=== PATIENT | female | born 1970 | race Caucasian/White ===

== ENCOUNTER 2018-06-03 09:59 | Inpatient (IN) | payer MEDICAID, OTHER ==
[~2018-06-03] VITALS: Ht 154.9 cm; Wt 72.6 kg
[2018-06-03 10:48] LABS: BASOPHILS % 0.4 % (0.0-2.0); EOSINOPHILS % 1.9 % (0.0-5.0); HEMATOCRIT. 36.7 % (36.0-48.0); HEMOGLOBIN. 12.2 g/dL (12.0-16.0); LYMPHOCYTES % 22.3 % (20.0-50.0); MEAN CORPUSCULAR HEMOGLOBIN 30.6 pg (28.0-32.0); MEAN CORPUSCULAR VOLUME 91.8 fL (81.0-99.0); MEAN PLATELET VOLUME 9.4 fl (7.4-10.4); MONOCYTES % 4.7 % (2.0-8.0); NEUTROPHILS % 70.7 % (40.0-76.0); PLATELET 184 x1000/uL (130-400); RED CELL DISTRIBUTION WIDTH 12.8 % (11.6-14.6)
[2018-06-03 10:54] LABS: CHLORIDE 105 mEq/L (98-107)
[2018-06-03 10:59] LABS: ETHANOL BLOOD < 10 mg/dL
[2018-06-03] MEDS ORDERED: LORAZEPAM 2MG/ML CPJ IV ONE (11:15)
[2018-06-03] MEDS ORDERED: SODIUM CHLORIDE 0.9% 1,000 ML IV ONE (11:15)
[2018-06-03 11:40] LABS: CREATINE KINASE 47 IU/L (26-192)
[2018-06-03 12:18] LABS: CLARITY URINE CLEAR (CLEAR); COLOR URINE YELLOW (YELLOW); KETONES URINE NEGATIVE (NEGATIVE); LEUKOCYTE ESTERASE URINE NEGATIVE (NEGATIVE); NITRITE URINE NEGATIVE (NEGATIVE); OCCULT BLOOD URINE NEGATIVE (NEGATIVE); PROTEIN URINE NEGATIVE (NEGATIVE); UROBILINOGEN URINE 0.2 E.U./dL (0.2-1.0)
[2018-06-03 13:00] LABS: *AMPHETAMINES SCREEN URINE NEGATIVE (NEGATIVE); *BARBITURATES SCREEN URINE NEGATIVE (NEGATIVE); *BENZODIAZEPINES SCREEN URINE NEGATIVE (NEGATIVE); *COCAINE SCREEN URINE NEGATIVE (NEGATIVE); CANNABINOID URINE SCREEN NEGATIVE (NEGATIVE); METHADONE URINE SCREEN NEGATIVE (NEGATIVE); OPIATES URINE SCREEN NEGATIVE (NEGATIVE); PHENCYCLIDINE URINE SCREEN NEGATIVE (NEGATIVE)
[2018-06-03] MEDS ORDERED: ACETAMINOPHEN 325MG TABLET PO PRN (15:00)
[2018-06-03] MEDS ORDERED: ONDANSETRON HCL 4MG/2ML INJ IV PRN (15:00)
[2018-06-03 15:39] LABS: VITAMIN B12 SERUM 1177 pg/mL (211-911)
[2018-06-03] MEDS: DEXT 5%/0.45% NACL 1000ML 1,000 ML IV SCH (20:15)
[2018-06-03] MEDS: LORAZEPAM 2MG/ML CPJ IV PRN (20:20)
[2018-06-03 22:50] VITALS: BP_SYST 134; BP_DIAS 46; BP_DIAS 49
[2018-06-04 04:00] VITALS: BP 100/88
[2018-06-04] MEDS: DEXT 5%/0.45% NACL 1000ML 1,000 ML IV SCH ×2 (04:20→17:40)
[2018-06-04 08:00] VITALS: BP 98/52
[2018-06-04 08:07] LABS: BASOPHILS % 0.5 % (0.0-2.0); HEMATOCRIT. 36.1 % (36.0-48.0); LYMPHOCYTES % 21.5 % (20.0-50.0); MEAN CORPUSCULAR HEMOGLOBIN 30.4 pg (28.0-32.0); MEAN CORPUSCULAR VOLUME 91.3 fL (81.0-99.0); MONOCYTES % 4.9 % (2.0-8.0); NEUTROPHILS % 71.1 % (40.0-76.0); PLATELET 190 x1000/uL (130-400); RED BLOOD CELL COUNT 3.95 mill/uL (4.2-5.4)
[2018-06-04 10:47] LABS: CHLORIDE 104 mEq/L (98-107)
[2018-06-04 12:00] VITALS: BP 111/62
[2018-06-04 16:00] VITALS: BP_SYST 103; BP_SYST 144; BP_SYST 69; BP_DIAS 69; BP_DIAS 85
[2018-06-04 20:00] VITALS: BP 108/60
[2018-06-04] MEDS: HALOPERIDOL 2MG TABLET PO SCH (20:49)
[2018-06-04 22:00] VITALS: BP 104/54
[2018-06-05] VITALS: BP 111/66
[2018-06-05 04:00] VITALS: BP 100/66
[2018-06-05 08:00] VITALS: BP 160/100
[2018-06-05] MEDS: HALOPERIDOL 2MG TABLET PO SCH ×2 (09:13→20:18)
[2018-06-05] MEDS: DEXT 5%/0.45% NACL 1000ML 1,000 ML IV SCH ×2 (09:16→20:20)
[2018-06-05 12:00] VITALS: BP 130/52
[2018-06-05] MEDS: LORAZEPAM 2MG/ML CPJ IV PRN ×2 (15:50→23:07)
[2018-06-05 16:00] VITALS: BP 126/70
[2018-06-05 20:00] VITALS: BP 104/57
[2018-06-06] VITALS: BP 109/49
[2018-06-06 04:00] VITALS: BP 115/61
[2018-06-06 08:19] VITALS: BP 125/69
[2018-06-06 08:26] LABS: HIV SCREEN 4G Non Reactive (Non Reactive)
[2018-06-06] MEDS: HALOPERIDOL 2MG TABLET PO SCH ×2 (08:42→19:52)
[2018-06-06] MEDS: LORAZEPAM 2MG/ML CPJ IV PRN (08:42)
[2018-06-06 12:06] VITALS: BP 128/65
[2018-06-06 16:24] VITALS: BP 110/75
[2018-06-06 20:00] VITALS: BP 115/52
[2018-06-06] MEDS: DEXT 5%/0.45% NACL 1000ML 1,000 ML IV SCH (23:00)
[2018-06-07] VITALS: BP 103/69
[2018-06-07 04:00] VITALS: BP 104/56
[2018-06-07 08:00] VITALS: BP 105/50
[2018-06-07] MEDS: HALOPERIDOL 2MG TABLET PO SCH ×2 (08:24→20:15)
[2018-06-07 12:00] VITALS: BP 121/71
[2018-06-07 16:00] VITALS: BP 115/70
[2018-06-07 20:00] VITALS: BP 150/83
[2018-06-08] VITALS: BP 109/61
[2018-06-08 04:00] VITALS: BP 120/78
[2018-06-08] MEDS: HALOPERIDOL 2MG TABLET PO SCH ×2 (08:35→20:21)
[2018-06-08 12:00] VITALS: BP 114/69
[2018-06-08 20:00] VITALS: BP 128/79
[2018-06-08 23:44] VITALS: BP 103/60
[2018-06-09] MEDS: LORAZEPAM 2MG/ML CPJ IV PRN ×2 (01:37→20:02)
[2018-06-09 04:00] VITALS: BP 121/68
[2018-06-09 07:51] VITALS: BP 111/54
[2018-06-09] MEDS: HALOPERIDOL 2MG TABLET PO SCH ×2 (08:12→20:02)
[2018-06-09 12:00] VITALS: BP 96/40
[2018-06-09 20:00] VITALS: BP 113/59
[2018-06-10] VITALS: BP 110/55
[2018-06-10 04:00] VITALS: BP_SYST 118; BP_SYST 137; BP_DIAS 66; BP_DIAS 70
[2018-06-10] MEDS: DEXT 5%/0.45% NACL 1000ML 1,000 ML IV SCH ×2 (07:00→20:20)
[2018-06-10 07:45] VITALS: BP 100/50
[2018-06-10] MEDS: HALOPERIDOL 2MG TABLET PO SCH ×2 (09:57→20:35)
[2018-06-10 12:00] VITALS: BP 112/65
[2018-06-10 16:00] VITALS: BP 102/53
[2018-06-10 20:00] VITALS: BP 105/61
[2018-06-10] MEDS: LORAZEPAM 2MG/ML CPJ IV PRN (22:47)
[2018-06-11] VITALS: BP 115/70
[2018-06-11 04:00] VITALS: BP 115/72
[2018-06-11] MEDS: LORAZEPAM 2MG/ML CPJ IV PRN (04:57)
[2018-06-11 08:00] VITALS: BP 131/74
[2018-06-11] MEDS: HALOPERIDOL 2MG TABLET PO SCH ×2 (08:21→20:08)
[2018-06-11] MEDS: DEXT 5%/0.45% NACL 1000ML 1,000 ML IV SCH (09:40)
[2018-06-11 12:00] VITALS: BP 131/76
[2018-06-11 16:00] VITALS: BP 103/55
[2018-06-11 20:00] VITALS: BP 102/60
[2018-06-11] MEDS: DIPHENHYDRAMINE 50MG/ML VIAL IV PRN (20:17)
[2018-06-12] VITALS: BP 103/50
[2018-06-12 04:00] VITALS: BP 113/69
[2018-06-12 07:51] VITALS: BP 112/68
[2018-06-12] MEDS: HALOPERIDOL 2MG TABLET PO SCH ×2 (08:08→20:53)
[2018-06-12 12:00] VITALS: BP 95/61
[2018-06-12 16:00] VITALS: BP 95/60
[2018-06-12 20:00] VITALS: BP 112/66
[2018-06-13] VITALS: BP 102/60
[2018-06-13 04:00] VITALS: BP 105/70
[2018-06-13 08:00] VITALS: BP 102/55
[2018-06-13] MEDS: HALOPERIDOL 2MG TABLET PO SCH ×2 (09:26→20:12)
[2018-06-13 12:04] VITALS: BP 101/51
[2018-06-13 16:09] VITALS: BP 109/55
[2018-06-13 20:00] VITALS: BP 104/65
[2018-06-14] VITALS: BP 107/68
[2018-06-14 04:00] VITALS: BP 100/61
[2018-06-14 08:00] VITALS: BP 99/57
[2018-06-14] MEDS: HALOPERIDOL 2MG TABLET PO SCH ×2 (09:27→20:10)
[2018-06-14 12:00] VITALS: BP 110/87
[2018-06-14] MEDS: DIPHENHYDRAMINE 50MG/ML VIAL IV PRN (12:26)
[2018-06-14 16:00] VITALS: BP 99/68
[2018-06-14 20:00] VITALS: BP 100/63
[2018-06-15] VITALS: BP 115/73
[2018-06-15 04:00] VITALS: BP 110/65
[2018-06-15 08:00] VITALS: BP 107/66
[2018-06-15] MEDS: HALOPERIDOL 2MG TABLET PO SCH ×2 (08:25→20:32)
[2018-06-15 12:00] VITALS: BP 103/64
[2018-06-15 16:00] VITALS: BP 101/52
[2018-06-15] MEDS: LORAZEPAM 2MG/ML CPJ IV PRN ×2 (17:14→23:14)
[2018-06-15 20:00] VITALS: BP 114/65
[2018-06-16] VITALS: BP 104/58
[2018-06-16 04:00] VITALS: BP 110/60
[2018-06-16] MEDS: DIPHENHYDRAMINE 50MG/ML VIAL IV PRN ×2 (05:05→21:41)
[2018-06-16 08:00] VITALS: BP 94/56
[2018-06-16] MEDS: HALOPERIDOL 2MG TABLET PO SCH ×3 (10:19→21:29)
[2018-06-16 12:00] VITALS: BP 105/52
[2018-06-16 16:00] VITALS: BP 98/58
[2018-06-16 20:00] VITALS: BP 97/57
[2018-06-16] MEDS: LORAZEPAM 2MG/ML CPJ IV PRN (20:49)
[2018-06-17] VITALS: BP 116/66
[2018-06-17 04:00] VITALS: BP 104/70
[2018-06-17] MEDS: HALOPERIDOL 2MG TABLET PO SCH ×2 (08:09→21:41)
[2018-06-17] MEDS: LORAZEPAM 2MG/ML CPJ IV PRN ×2 (08:09→14:33)
[2018-06-17] MEDS: DIPHENHYDRAMINE 50MG/ML VIAL IV PRN (11:02)
[2018-06-17 12:00] VITALS: BP 123/60
[2018-06-17 16:00] VITALS: BP 113/57
[2018-06-17 20:00] VITALS: BP 170/100
[2018-06-18] VITALS: BP 140/100
[2018-06-18 04:00] VITALS: BP 135/91
[2018-06-18 08:00] VITALS: BP 106/58
[2018-06-18] MEDS: HALOPERIDOL 2MG TABLET PO SCH ×2 (09:17→21:13)
[2018-06-18 16:00] VITALS: BP 100/60
[2018-06-18 20:00] VITALS: BP 104/57
[2018-06-19] VITALS: BP 103/59
[2018-06-19 04:00] VITALS: BP 103/51
[2018-06-19] MEDS: HALOPERIDOL 2MG TABLET PO SCH ×2 (08:23→20:22)
[2018-06-19 08:32] VITALS: BP 101/59
[2018-06-19 12:35] VITALS: BP 122/69
[2018-06-19] MEDS: LORAZEPAM 2MG/ML CPJ IV PRN (12:46)
[2018-06-19 15:54] VITALS: BP 108/57
[2018-06-19] MEDS: DIPHENHYDRAMINE 50MG/ML VIAL IV PRN (17:05)
[2018-06-19 20:00] VITALS: BP 110/76
[2018-06-20] VITALS: BP 108/63
[2018-06-20 04:00] VITALS: BP 109/64
[2018-06-20 08:00] VITALS: BP 106/65
[2018-06-20] MEDS: HALOPERIDOL 2MG TABLET PO SCH (08:51)
[2018-06-20 12:39] VITALS: BP 106/59
[2018-06-20 16:00] VITALS: BP 106/65
[2018-06-20 20:00] VITALS: BP 144/51
[2018-06-20] MEDS: HALOPERIDOL 1MG TABLET PO SCH (23:24)
[2018-06-21] VITALS: BP 107/53
[2018-06-21 04:00] VITALS: BP 107/53
[2018-06-21 08:00] VITALS: BP 111/75
[2018-06-21] MEDS: HALOPERIDOL 1MG TABLET PO SCH ×2 (09:27→22:13)
[2018-06-21 11:53] VITALS: BP 104/60
[2018-06-21] MEDS ORDERED: LORAZEPAM 2MG/ML CPJ IV PRN (14:30)
[2018-06-21 16:00] VITALS: BP 122/64
[2018-06-21 20:00] VITALS: BP 104/63
[2018-06-22] VITALS: BP 104/58
[2018-06-22 04:00] VITALS: BP 112/68
[2018-06-22 08:00] VITALS: BP 114/92
[2018-06-22] MEDS: HALOPERIDOL 1MG TABLET PO SCH ×2 (08:03→21:25)
[2018-06-22 12:00] VITALS: BP 110/63
[2018-06-22 16:00] VITALS: BP 99/52
[2018-06-22 20:00] VITALS: BP 117/61
[2018-06-23] VITALS: BP 113/70
[2018-06-23 04:00] VITALS: BP 118/68
[2018-06-23 08:00] VITALS: BP 111/60
[2018-06-23] MEDS: HALOPERIDOL 1MG TABLET PO SCH ×2 (08:35→20:12)
[2018-06-23 12:00] VITALS: BP 115/71
[2018-06-23 16:00] VITALS: BP 118/69
[2018-06-23 20:00] VITALS: BP 109/57
[2018-06-24] VITALS: BP 105/63
[2018-06-24 04:00] VITALS: BP 106/64
[2018-06-24 08:00] VITALS: BP 110/66
[2018-06-24] MEDS: HALOPERIDOL 1MG TABLET PO SCH ×2 (09:07→20:31)
[2018-06-24 16:00] VITALS: BP 116/42
[2018-06-24 20:00] VITALS: BP 108/62
[2018-06-25] VITALS: BP 115/66
[2018-06-25 04:00] VITALS: BP 110/68
[2018-06-25 08:00] VITALS: BP 110/60
[2018-06-25] MEDS: HALOPERIDOL 1MG TABLET PO SCH ×2 (08:09→21:30)
[2018-06-25 12:00] VITALS: BP 110/60
[2018-06-25 16:00] VITALS: BP 110/50
[2018-06-25 20:00] VITALS: BP 101/66
[2018-06-26] VITALS: BP 100/77
[2018-06-26 04:00] VITALS: BP 108/66
[2018-06-26 08:00] VITALS: BP 97/55
[2018-06-26] MEDS: HALOPERIDOL 1MG TABLET PO SCH (08:19)
[2018-06-26 12:00] VITALS: BP 110/60
[2018-06-26] MEDS: DIPHENHYDRAMINE 50MG/ML VIAL IV PRN (14:22)
[2018-06-26 16:00] VITALS: BP 112/56
[2018-06-26 17:08] VITALS: BP 108/71
== END 2018-06-26 18:25 | DRG 52 ==
LOC: ER 10:28 → 8WST 13:03 → EDBD 13:03 → EDBEDREQTM 13:04 → EDBEDREQ 13:04 → ENRESERV 13:34 → CANRESERV 13:34 → ENRESERV 21:50 → 8WST 23:12
PROVIDERS: ADMIT Internal Medicine; ATTEND Internal Medicine
DX: G93.41 Metabolic encephalopathy (principal); E44.1 Mild protein-calorie malnutrition; G20 Parkinson's disease; E87.6 Hypokalemia; G10 Huntington's disease; E16.2 Hypoglycemia, unspecified; G25.2 Other specified forms of tremor; Z68.30 Body mass index [BMI] 30.0-30.9, adult
CPT/HCPCS: 36415; 71045; 80048; 80305; 81025; 82140; 82550; 82607; 82962; 83605; 84443; 84484; 87389; 92610; 96361; 96374; 96375; 97116; 97162; 97164; 97166; 97530; 97535; 99285; C1893; G0482; J1200; J2060; J2405; J7030; J7040; A4315

== ENCOUNTER 2019-10-30 10:14 | Inpatient (IN) | payer MEDICAID, OTHER ==
[~2019-10-30] VITALS: Ht 167.6 cm; Wt 73.0 kg
[2019-10-30] MEDS ORDERED: OLANZAPINE 5MG TABLET ODT PO ONE (11:00)
[2019-10-30 11:39] LABS: BASOPHILS % 0.3 % (0.0-2.0); HEMATOCRIT. 39.1 % (36.0-48.0); HEMOGLOBIN. 13.2 g/dL (12.0-16.0); LYMPHOCYTES % 19.5 % (20.0-50.0); MEAN CORPUSCULAR HEMOGLOBIN 29.2 pg (28.0-32.0); MEAN CORPUSCULAR VOLUME 86.7 fL (81.0-99.0); MEAN PLATELET VOLUME 9.6 fl (7.4-10.4); MONOCYTES % 6.3 % (2.0-8.0); NEUTROPHILS % 72.9 % (40.0-76.0); PLATELET 205 x1000/uL (130-400); RED BLOOD CELL COUNT 4.51 mill/uL (4.2-5.4); RED CELL DISTRIBUTION WIDTH 14.6 % (11.6-14.6)
[2019-10-30 11:47] LABS: CHLORIDE 108 mEq/L (98-107)
[2019-10-30 11:49] LABS: ETHANOL BLOOD < 10 mg/dL
[2019-10-30 12:27] LABS: HCG SCREEN NEGATIVE
[2019-10-30] MEDS ORDERED: ONDANSETRON HCL 4MG/2ML INJ IV PRN (15:15)
[2019-10-30] MEDS ORDERED: ACETAMINOPHEN 325MG TABLET PO PRN (15:15)
[2019-10-30 20:00] VITALS: BP_SYST 165; BP_SYST 93; BP_DIAS 59; BP_DIAS 77
[2019-10-30 21:00] VITALS: BP 93/59
[2019-10-30] MEDS ORDERED: QUETIAPINE FUMARATE 25MG TABLET PO SCH (21:00)
[2019-10-30] MEDS: HEPARIN 5000 UNITS/ML VIAL SUBCUT SCH (21:31)
[2019-10-31] VITALS: BP 97/55
[2019-10-31] MEDS ORDERED: DEPSPR PO (01:03)
[2019-10-31] MEDS ORDERED: DEUT12TA PO (01:14)
[2019-10-31] MEDS ORDERED: [UNRECOGNIZED DRUG - OTHER] MT (01:14)
[2019-10-31] MEDS ORDERED: CLON1TAB12 PO (01:14)
[2019-10-31] MEDS ORDERED: PARO10TA74 PO (01:14)
[2019-10-31] MEDS ORDERED: CHOL40002 PO (01:14)
[2019-10-31 04:00] VITALS: BP 102/59
[2019-10-31 06:04] LABS: BASOPHILS % 0.8 % (0.0-2.0); EOSINOPHILS % 3.5 % (0.0-5.0); HEMATOCRIT. 37.2 % (36.0-48.0); HEMOGLOBIN. 12.4 g/dL (12.0-16.0); LYMPHOCYTES % 38.2 % (20.0-50.0); MEAN CORPUSCULAR HEMOGLOBIN 28.9 pg (28.0-32.0); MEAN CORPUSCULAR VOLUME 86.5 fL (81.0-99.0); MEAN PLATELET VOLUME 9.9 fl (7.4-10.4); NEUTROPHILS % 47.5 % (40.0-76.0); PLATELET 206 x1000/uL (130-400); RED BLOOD CELL COUNT 4.29 mill/uL (4.2-5.4); RED CELL DISTRIBUTION WIDTH 14.6 % (11.6-14.6)
[2019-10-31 06:19] LABS: CHLORIDE 110 mEq/L (98-107)
[2019-10-31 06:37] LABS: T4 FREE 0.91 ng/dL (0.76-1.46)
[2019-10-31 08:00] VITALS: BP 84/41
[2019-10-31] MEDS: HEPARIN 5000 UNITS/ML VIAL SUBCUT SCH ×2 (09:49→22:08)
[2019-10-31 12:00] VITALS: BP 87/40
[2019-10-31 16:00] VITALS: BP 83/43
[2019-10-31] MEDS: QUETIAPINE FUMARATE 25MG TABLET PO SCH ×2 (16:13→22:08)
[2019-10-31 20:00] VITALS: BP 87/45
[2019-10-31] MEDS: HALOPERIDOL 5MG TABLET PO SCH (22:08)
[2019-11-01] VITALS: BP 94/60
[2019-11-01 04:00] VITALS: BP 104/84
[2019-11-01 07:16] LABS: BASOPHILS % 0.4 % (0.0-2.0); EOSINOPHILS % 4.6 % (0.0-5.0); HEMATOCRIT. 35.4 % (36.0-48.0); HEMOGLOBIN. 12.2 g/dL (12.0-16.0); LYMPHOCYTES % 49.8 % (20.0-50.0); MEAN CORPUSCULAR HEMOGLOBIN 29.8 pg (28.0-32.0); MEAN CORPUSCULAR VOLUME 86.4 fL (81.0-99.0); MEAN PLATELET VOLUME 9.7 fl (7.4-10.4); MONOCYTES % 9.2 % (2.0-8.0); PLATELET 193 x1000/uL (130-400); RED CELL DISTRIBUTION WIDTH 14.7 % (11.6-14.6)
[2019-11-01 07:54] LABS: CHLORIDE 108 mEq/L (98-107)
[2019-11-01 08:00] VITALS: BP 81/51
[2019-11-01] MEDS: HALOPERIDOL 5MG TABLET PO SCH ×2 (08:18→20:52)
[2019-11-01] MEDS: QUETIAPINE FUMARATE 25MG TABLET PO SCH ×2 (08:18→20:52)
[2019-11-01] MEDS: HEPARIN 5000 UNITS/ML VIAL SUBCUT SCH ×3 (08:19→21:22)
[2019-11-01 12:00] VITALS: BP 104/44
[2019-11-01 15:34] VITALS: BP 106/55
[2019-11-01 20:00] VITALS: BP 101/48
[2019-11-02] VITALS: BP 95/55
[2019-11-02 04:00] VITALS: BP 94/53
[2019-11-02 06:56] LABS: BASOPHILS % 0.6 % (0.0-2.0); EOSINOPHILS % 3.3 % (0.0-5.0); HEMATOCRIT. 34.8 % (36.0-48.0); LYMPHOCYTES % 33.3 % (20.0-50.0); MEAN CORPUSCULAR HEMOGLOBIN 29.4 pg (28.0-32.0); MEAN CORPUSCULAR VOLUME 85.3 fL (81.0-99.0); MEAN PLATELET VOLUME 9.9 fl (7.4-10.4); MONOCYTES % 10.4 % (2.0-8.0); NEUTROPHILS % 52.4 % (40.0-76.0); PLATELET 196 x1000/uL (130-400); RED BLOOD CELL COUNT 4.08 mill/uL (4.2-5.4); RED CELL DISTRIBUTION WIDTH 14.2 % (11.6-14.6)
[2019-11-02 07:02] LABS: CHLORIDE 105 mEq/L (98-107)
[2019-11-02 08:00] VITALS: BP 101/75
[2019-11-02] MEDS: QUETIAPINE FUMARATE 25MG TABLET PO SCH ×2 (09:28→20:37)
[2019-11-02] MEDS: HALOPERIDOL 5MG TABLET PO SCH ×2 (09:28→20:37)
[2019-11-02] MEDS: HEPARIN 5000 UNITS/ML VIAL SUBCUT SCH ×2 (09:29→20:37)
[2019-11-02 12:00] VITALS: BP 108/82
[2019-11-02 16:00] VITALS: BP 101/52
[2019-11-02 20:00] VITALS: BP 100/54
[2019-11-03] VITALS: BP 99/51
[2019-11-03 04:00] VITALS: BP 98/50
[2019-11-03 06:56] LABS: CHLORIDE 104 mEq/L (98-107)
[2019-11-03 07:14] LABS: BASOPHILS % 0.7 % (0.0-2.0); EOSINOPHILS % 5.3 % (0.0-5.0); HEMOGLOBIN. 12.3 g/dL (12.0-16.0); LYMPHOCYTES % 47.5 % (20.0-50.0); MEAN CORPUSCULAR HEMOGLOBIN 29.4 pg (28.0-32.0); MEAN CORPUSCULAR VOLUME 86.2 fL (81.0-99.0); MEAN PLATELET VOLUME 9.5 fl (7.4-10.4); MONOCYTES % 12.3 % (2.0-8.0); NEUTROPHILS % 34.2 % (40.0-76.0); PLATELET 204 x1000/uL (130-400); RED BLOOD CELL COUNT 4.18 mill/uL (4.2-5.4); RED CELL DISTRIBUTION WIDTH 14.7 % (11.6-14.6)
[2019-11-03 08:00] VITALS: BP 100/50
[2019-11-03] MEDS: LISINOPRIL 2.5MG TABLET PO SCH (09:00)
[2019-11-03] MEDS: HALOPERIDOL 5MG TABLET PO SCH ×2 (09:20→20:55)
[2019-11-03] MEDS: SPIRONOLACTONE 25MG TABLET PO SCH (09:20)
[2019-11-03] MEDS: QUETIAPINE FUMARATE 25MG TABLET PO SCH ×2 (09:20→20:55)
[2019-11-03] MEDS: HEPARIN 5000 UNITS/ML VIAL SUBCUT SCH ×2 (09:21→20:57)
[2019-11-03 12:00] VITALS: BP 100/50
[2019-11-03 16:00] VITALS: BP 100/53
[2019-11-03 20:00] VITALS: BP 99/59
[2019-11-04] VITALS: BP 96/55
[2019-11-04 04:00] VITALS: BP 91/51
[2019-11-04 08:00] VITALS: BP 92/43
[2019-11-04] MEDS: LISINOPRIL 2.5MG TABLET PO SCH (09:00)
[2019-11-04 09:30] LABS: HEMATOCRIT. 39.4 % (36.0-48.0); HEMOGLOBIN. 13.2 g/dL (12.0-16.0); MEAN CORPUSCULAR HEMOGLOBIN 28.9 pg (28.0-32.0); MEAN CORPUSCULAR VOLUME 86.2 fL (81.0-99.0); MEAN PLATELET VOLUME 9.1 fl (7.4-10.4); PLATELET 211 x1000/uL (130-400); RED BLOOD CELL COUNT 4.57 mill/uL (4.2-5.4); RED CELL DISTRIBUTION WIDTH 14.7 % (11.6-14.6)
[2019-11-04] MEDS: QUETIAPINE FUMARATE 25MG TABLET PO SCH ×2 (09:41→20:34)
[2019-11-04] MEDS: SPIRONOLACTONE 25MG TABLET PO SCH (09:41)
[2019-11-04] MEDS: HALOPERIDOL 5MG TABLET PO SCH ×2 (09:41→20:34)
[2019-11-04] MEDS: HEPARIN 5000 UNITS/ML VIAL SUBCUT SCH ×2 (09:42→20:46)
[2019-11-04 09:55] LABS: CHLORIDE 105 mEq/L (98-107)
[2019-11-04 12:00] VITALS: BP 93/43
[2019-11-04 14:45] LABS: PLATELET ESTIMATE NORMAL
[2019-11-04 16:00] VITALS: BP 89/47
[2019-11-04 20:00] VITALS: BP 97/59
[2019-11-05] VITALS: BP 100/56
[2019-11-05 04:00] VITALS: BP 100/53
[2019-11-05 08:00] VITALS: BP 73/50
[2019-11-05] MEDS: SPIRONOLACTONE 25MG TABLET PO SCH (08:28)
[2019-11-05] MEDS: HALOPERIDOL 5MG TABLET PO SCH ×2 (08:28→21:09)
[2019-11-05] MEDS: QUETIAPINE FUMARATE 25MG TABLET PO SCH ×2 (08:28→21:09)
[2019-11-05] MEDS: HEPARIN 5000 UNITS/ML VIAL SUBCUT SCH ×2 (08:29→21:10)
[2019-11-05] MEDS: LISINOPRIL 2.5MG TABLET PO SCH (09:00)
[2019-11-05] MEDS: MIDODRINE HCL 5MG TABLET PO SCH (11:00)
[2019-11-05 12:00] VITALS: BP 114/74
[2019-11-05 16:00] VITALS: BP 108/58
[2019-11-05 20:00] VITALS: BP 110/56
[2019-11-06] VITALS: BP 100/62
[2019-11-06 04:00] VITALS: BP 101/41
[2019-11-06 08:00] VITALS: BP 92/46
[2019-11-06] MEDS: MIDODRINE HCL 5MG TABLET PO SCH (08:43)
[2019-11-06] MEDS: SPIRONOLACTONE 25MG TABLET PO SCH (08:43)
[2019-11-06] MEDS: QUETIAPINE FUMARATE 25MG TABLET PO SCH ×2 (08:44→21:22)
[2019-11-06] MEDS: HALOPERIDOL 5MG TABLET PO SCH (08:44)
[2019-11-06] MEDS: HEPARIN 5000 UNITS/ML VIAL SUBCUT SCH ×2 (08:45→21:22)
[2019-11-06 12:00] VITALS: BP 92/34
[2019-11-06 16:00] VITALS: BP 103/46
[2019-11-06 20:00] VITALS: BP 106/62
[2019-11-07] VITALS: BP 105/60
[2019-11-07 04:00] VITALS: BP 111/51
[2019-11-07 08:00] VITALS: BP 98/46
[2019-11-07] MEDS: MIDODRINE HCL 5MG TABLET PO SCH (08:13)
[2019-11-07] MEDS: QUETIAPINE FUMARATE 25MG TABLET PO SCH ×2 (08:13→21:00)
[2019-11-07] MEDS: HALOPERIDOL 5MG TABLET PO SCH ×2 (08:14→21:00)
[2019-11-07] MEDS: SPIRONOLACTONE 25MG TABLET PO SCH (08:14)
[2019-11-07] MEDS: HEPARIN 5000 UNITS/ML VIAL SUBCUT SCH ×2 (08:15→21:00)
[2019-11-07 12:00] VITALS: BP 87/46
[2019-11-07 16:00] VITALS: BP 105/58
[2019-11-07 20:00] VITALS: BP 131/72
[2019-11-08] VITALS: BP 117/68
[2019-11-08 04:00] VITALS: BP 127/66
[2019-11-08 08:00] VITALS: BP 93/59
[2019-11-08] MEDS: SPIRONOLACTONE 25MG TABLET PO SCH (09:00)
[2019-11-08] MEDS: HEPARIN 5000 UNITS/ML VIAL SUBCUT SCH ×2 (09:11→20:57)
[2019-11-08] MEDS: HALOPERIDOL 5MG TABLET PO SCH ×2 (09:12→20:57)
[2019-11-08] MEDS: QUETIAPINE FUMARATE 25MG TABLET PO SCH ×2 (09:12→20:57)
[2019-11-08] MEDS: MIDODRINE HCL 5MG TABLET PO SCH (09:12)
[2019-11-08 12:00] VITALS: BP 94/53
[2019-11-08 16:00] VITALS: BP 101/46
[2019-11-08 20:00] VITALS: BP 101/55
[2019-11-09] VITALS (7 sets, daily range): BP systolic 85–108; BP diastolic 46–62
[2019-11-09] MEDS: HALOPERIDOL 5MG TABLET PO SCH ×2 (08:58→20:56)
[2019-11-09] MEDS: QUETIAPINE FUMARATE 25MG TABLET PO SCH ×2 (08:58→20:55)
[2019-11-09] MEDS: SPIRONOLACTONE 25MG TABLET PO SCH (08:58)
[2019-11-09] MEDS: MIDODRINE HCL 2.5MG TABLET PO SCH ×3 (08:59→17:17)
[2019-11-09] MEDS: HEPARIN 5000 UNITS/ML VIAL SUBCUT SCH ×2 (09:10→20:57)
[2019-11-10 00:32] VITALS: BP 109/61
[2019-11-10 04:00] VITALS: BP 92/51
[2019-11-10 08:00] VITALS: BP 89/40
[2019-11-10] MEDS: HEPARIN 5000 UNITS/ML VIAL SUBCUT SCH ×2 (08:49→20:42)
[2019-11-10] MEDS: QUETIAPINE FUMARATE 25MG TABLET PO SCH ×2 (08:50→20:43)
[2019-11-10] MEDS: MIDODRINE HCL 2.5MG TABLET PO SCH ×3 (08:50→17:19)
[2019-11-10] MEDS: SPIRONOLACTONE 25MG TABLET PO SCH (08:50)
[2019-11-10] MEDS: HALOPERIDOL 5MG TABLET PO SCH ×2 (08:51→20:43)
[2019-11-10 12:00] VITALS: BP 101/54
[2019-11-10 16:00] VITALS: BP 103/53
[2019-11-10 20:00] VITALS: BP 107/60
[2019-11-11 00:29] VITALS: BP 101/54
[2019-11-11 04:00] VITALS: BP 98/51
[2019-11-11 08:00] VITALS: BP 91/33
[2019-11-11] MEDS: HALOPERIDOL 5MG TABLET PO SCH ×2 (08:21→21:40)
[2019-11-11] MEDS: SPIRONOLACTONE 25MG TABLET PO SCH (08:21)
[2019-11-11] MEDS: QUETIAPINE FUMARATE 25MG TABLET PO SCH ×2 (08:22→21:40)
[2019-11-11] MEDS: HEPARIN 5000 UNITS/ML VIAL SUBCUT SCH ×2 (08:22→21:41)
[2019-11-11] MEDS: MIDODRINE HCL 2.5MG TABLET PO SCH (08:22)
[2019-11-11 12:00] VITALS: BP 97/39
[2019-11-11 13:09] LABS: BASOPHILS % 0.6 % (0.0-2.0); EOSINOPHILS % 2.7 % (0.0-5.0); HEMATOCRIT. 38.8 % (36.0-48.0); HEMOGLOBIN. 13.2 g/dL (12.0-16.0); LYMPHOCYTES % 34.2 % (20.0-50.0); MEAN CORPUSCULAR VOLUME 85.5 fL (81.0-99.0); MEAN PLATELET VOLUME 8.5 fl (7.4-10.4); MONOCYTES % 7.5 % (2.0-8.0); PLATELET 277 x1000/uL (130-400); RED BLOOD CELL COUNT 4.54 mill/uL (4.2-5.4); RED CELL DISTRIBUTION WIDTH 14.9 % (11.6-14.6)
[2019-11-11 13:36] LABS: CHLORIDE 105 mEq/L (98-107)
[2019-11-11 16:00] VITALS: BP 106/52
[2019-11-11 20:00] VITALS: BP 108/67
[2019-11-12] VITALS: BP 99/48
[2019-11-12 04:00] VITALS: BP 100/50
[2019-11-12 08:00] VITALS: BP 99/63
[2019-11-12] MEDS: HALOPERIDOL 5MG TABLET PO SCH ×2 (09:00→21:26)
[2019-11-12] MEDS: SPIRONOLACTONE 25MG TABLET PO SCH (09:00)
[2019-11-12] MEDS: QUETIAPINE FUMARATE 25MG TABLET PO SCH ×2 (09:45→21:26)
[2019-11-12] MEDS: HEPARIN 5000 UNITS/ML VIAL SUBCUT SCH ×2 (09:46→21:26)
[2019-11-12] MEDS ORDERED: HALOPERIDOL 5MG TABLET PO SCH (11:45)
[2019-11-12 12:00] VITALS: BP 92/50
[2019-11-12 16:00] VITALS: BP 106/35
[2019-11-12 20:00] VITALS: BP 121/76
[2019-11-13] VITALS: BP 118/71
[2019-11-13 04:00] VITALS: BP 105/60
[2019-11-13 08:00] VITALS: BP 104/53
[2019-11-13] MEDS: SPIRONOLACTONE 25MG TABLET PO SCH (09:00)
[2019-11-13] MEDS: HEPARIN 5000 UNITS/ML VIAL SUBCUT SCH ×2 (10:08→21:26)
[2019-11-13] MEDS: QUETIAPINE FUMARATE 25MG TABLET PO SCH ×2 (10:08→21:27)
[2019-11-13] MEDS: HALOPERIDOL 5MG TABLET PO SCH ×2 (10:08→21:27)
[2019-11-13 12:00] VITALS: BP 109/55
[2019-11-13 16:00] VITALS: BP 113/63
[2019-11-13 20:00] VITALS: BP 104/54
[2019-11-14] VITALS: BP 109/50
[2019-11-14 04:00] VITALS: BP 101/56
[2019-11-14 08:00] VITALS: BP 93/61
[2019-11-14] MEDS: SPIRONOLACTONE 25MG TABLET PO SCH (09:00)
[2019-11-14] MEDS: QUETIAPINE FUMARATE 25MG TABLET PO SCH ×2 (09:20→20:37)
[2019-11-14] MEDS: HALOPERIDOL 5MG TABLET PO SCH ×2 (09:20→20:37)
[2019-11-14] MEDS: HEPARIN 5000 UNITS/ML VIAL SUBCUT SCH ×2 (09:25→20:38)
[2019-11-14] MEDS: LISINOPRIL 2.5MG TABLET PO SCH (10:45)
[2019-11-14 15:55] VITALS: BP 111/61
[2019-11-14 20:00] VITALS: BP 107/49
[2019-11-15] VITALS: BP 101/55
[2019-11-15 04:00] VITALS: BP 110/53
[2019-11-15 08:00] VITALS: BP 106/48
[2019-11-15] MEDS: QUETIAPINE FUMARATE 25MG TABLET PO SCH ×2 (08:45→20:16)
[2019-11-15] MEDS: LISINOPRIL 2.5MG TABLET PO SCH (08:45)
[2019-11-15] MEDS: SPIRONOLACTONE 25MG TABLET PO SCH (08:45)
[2019-11-15] MEDS: HEPARIN 5000 UNITS/ML VIAL SUBCUT SCH (08:46)
[2019-11-15] MEDS: HALOPERIDOL 5MG TABLET PO SCH ×2 (08:46→20:16)
[2019-11-15 12:00] VITALS: BP 104/61
[2019-11-15 16:00] VITALS: BP_SYST 104; BP_SYST 115; BP_DIAS 65; BP_DIAS 76
[2019-11-15 20:00] VITALS: BP 120/68
[2019-11-16] VITALS: BP 118/65
[2019-11-16 04:00] VITALS: BP 122/64
[2019-11-16 08:00] VITALS: BP 104/68
[2019-11-16] MEDS: QUETIAPINE FUMARATE 25MG TABLET PO SCH ×2 (08:38→21:05)
[2019-11-16] MEDS: HALOPERIDOL 5MG TABLET PO SCH ×2 (08:38→21:05)
[2019-11-16] MEDS: LISINOPRIL 2.5MG TABLET PO SCH (08:38)
[2019-11-16] MEDS: SPIRONOLACTONE 25MG TABLET PO SCH (08:38)
[2019-11-16 12:00] VITALS: BP 98/58
[2019-11-16 16:00] VITALS: BP 105/57
[2019-11-16 20:00] VITALS: BP 106/50
[2019-11-17] VITALS: BP 95/48
[2019-11-17 04:00] VITALS: BP 91/49
[2019-11-17 08:00] VITALS: BP 95/53
[2019-11-17] MEDS: LISINOPRIL 2.5MG TABLET PO SCH (09:00)
[2019-11-17] MEDS: QUETIAPINE FUMARATE 25MG TABLET PO SCH ×2 (09:40→20:23)
[2019-11-17] MEDS: SPIRONOLACTONE 25MG TABLET PO SCH (09:40)
[2019-11-17] MEDS: HALOPERIDOL 5MG TABLET PO SCH ×2 (09:40→20:23)
[2019-11-17 12:00] VITALS: BP 101/59
[2019-11-17 16:00] VITALS: BP 105/60
[2019-11-17 20:00] VITALS: BP 95/46
[2019-11-18] VITALS: BP 93/48
[2019-11-18 04:00] VITALS: BP 95/48
[2019-11-18 08:00] VITALS: BP 91/39
[2019-11-18] MEDS: SPIRONOLACTONE 25MG TABLET PO SCH (08:18)
[2019-11-18] MEDS: LISINOPRIL 2.5MG TABLET PO SCH (08:19)
[2019-11-18] MEDS: QUETIAPINE FUMARATE 25MG TABLET PO SCH ×2 (08:20→20:03)
[2019-11-18] MEDS: HALOPERIDOL 5MG TABLET PO SCH ×2 (08:20→20:03)
[2019-11-18 12:00] VITALS: BP 96/32
[2019-11-18 16:00] VITALS: BP 95/47
[2019-11-18 20:00] VITALS: BP 97/52
[2019-11-19] VITALS: BP 84/45
[2019-11-19 04:00] VITALS: BP 96/53
[2019-11-19 08:00] VITALS: BP 99/53
[2019-11-19] MEDS: QUETIAPINE FUMARATE 25MG TABLET PO SCH ×2 (08:23→20:05)
[2019-11-19] MEDS: HALOPERIDOL 5MG TABLET PO SCH ×2 (08:23→20:05)
[2019-11-19] MEDS: SPIRONOLACTONE 25MG TABLET PO SCH (08:23)
[2019-11-19] MEDS: LISINOPRIL 2.5MG TABLET PO SCH (08:24)
[2019-11-19 12:00] VITALS: BP 93/50
[2019-11-19 15:00] LABS: BASOPHILS % 0.4 % (0.0-2.0); EOSINOPHILS % 2.5 % (0.0-5.0); HEMATOCRIT. 38.3 % (36.0-48.0); MEAN CORPUSCULAR HEMOGLOBIN 29.5 pg (28.0-32.0); MEAN CORPUSCULAR VOLUME 86.9 fL (81.0-99.0); MEAN PLATELET VOLUME 8.8 fl (7.4-10.4); MONOCYTES % 7.6 % (2.0-8.0); NEUTROPHILS % 61.5 % (40.0-76.0); PLATELET 283 x1000/uL (130-400); RED BLOOD CELL COUNT 4.41 mill/uL (4.2-5.4)
[2019-11-19 16:00] VITALS: BP 105/59
[2019-11-19 17:35] LABS: CHLORIDE 106 mEq/L (98-107)
[2019-11-19 20:00] VITALS: BP 99/45
[2019-11-20] VITALS: BP 117/88
[2019-11-20 04:00] VITALS: BP 95/42
[2019-11-20 08:00] VITALS: BP 93/52
[2019-11-20] MEDS: SPIRONOLACTONE 25MG TABLET PO SCH (08:58)
[2019-11-20] MEDS: LISINOPRIL 2.5MG TABLET PO SCH (08:58)
[2019-11-20] MEDS: HALOPERIDOL 5MG TABLET PO SCH ×2 (08:59→21:05)
[2019-11-20] MEDS: QUETIAPINE FUMARATE 25MG TABLET PO SCH ×2 (08:59→21:05)
[2019-11-20 12:00] VITALS: BP 101/51
[2019-11-20 16:00] VITALS: BP 103/59
[2019-11-20 20:00] VITALS: BP 101/60
[2019-11-21] VITALS: BP 101/56
[2019-11-21 04:00] VITALS: BP 95/50
[2019-11-21 08:00] VITALS: BP 94/46
[2019-11-21] MEDS: SPIRONOLACTONE 25MG TABLET PO SCH (08:14)
[2019-11-21] MEDS: QUETIAPINE FUMARATE 25MG TABLET PO SCH ×2 (08:15→20:39)
[2019-11-21] MEDS: HALOPERIDOL 5MG TABLET PO SCH ×2 (08:15→20:39)
[2019-11-21] MEDS: LISINOPRIL 2.5MG TABLET PO SCH (08:15)
[2019-11-21 12:00] VITALS: BP_SYST 110; BP_SYST 94; BP_DIAS 52; BP_DIAS 84
[2019-11-21 16:00] VITALS: BP_SYST 108; BP_SYST 97; BP_DIAS 64; BP_DIAS 72
[2019-11-22] VITALS: BP 96/56
[2019-11-22 04:00] VITALS: BP 96/44
[2019-11-22 08:00] VITALS: BP 98/67
[2019-11-22] MEDS: SPIRONOLACTONE 25MG TABLET PO SCH (09:36)
[2019-11-22] MEDS: QUETIAPINE FUMARATE 25MG TABLET PO SCH ×2 (09:37→20:39)
[2019-11-22] MEDS: HALOPERIDOL 5MG TABLET PO SCH ×2 (09:38→20:39)
[2019-11-22] MEDS: LISINOPRIL 2.5MG TABLET PO SCH (09:39)
[2019-11-22 12:00] VITALS: BP 100/54
[2019-11-22 16:00] VITALS: BP 105/60
[2019-11-22 20:00] VITALS: BP 98/50
[2019-11-23] VITALS: BP 101/51
[2019-11-23 04:00] VITALS: BP 99/56
[2019-11-23 08:00] VITALS: BP 101/61
[2019-11-23] MEDS: QUETIAPINE FUMARATE 25MG TABLET PO SCH ×2 (09:39→20:13)
[2019-11-23] MEDS: LISINOPRIL 2.5MG TABLET PO SCH (09:39)
[2019-11-23] MEDS: SPIRONOLACTONE 25MG TABLET PO SCH (09:40)
[2019-11-23] MEDS: HALOPERIDOL 5MG TABLET PO SCH ×2 (09:41→20:13)
[2019-11-23 11:41] VITALS: BP 102/55
[2019-11-23 16:00] VITALS: BP 103/65
[2019-11-23 20:00] VITALS: BP 100/52
[2019-11-24] VITALS: BP 99/57
[2019-11-24 04:00] VITALS: BP 101/49
[2019-11-24 08:00] VITALS: BP 97/60
[2019-11-24] MEDS: SPIRONOLACTONE 25MG TABLET PO SCH (08:41)
[2019-11-24] MEDS: HALOPERIDOL 5MG TABLET PO SCH ×2 (08:42→21:33)
[2019-11-24] MEDS: LISINOPRIL 2.5MG TABLET PO SCH (08:42)
[2019-11-24] MEDS: QUETIAPINE FUMARATE 25MG TABLET PO SCH ×2 (08:42→21:33)
[2019-11-24 12:00] VITALS: BP 101/60
[2019-11-24 16:00] VITALS: BP 102/59
[2019-11-24 20:00] VITALS: BP 95/46
[2019-11-25] VITALS: BP 92/63
[2019-11-25 04:00] VITALS: BP 96/48
[2019-11-25 08:00] VITALS: BP_SYST 107; BP_SYST 137; BP_DIAS 68; BP_DIAS 81
[2019-11-25] MEDS: LISINOPRIL 2.5MG TABLET PO SCH (09:00)
[2019-11-25] MEDS: SPIRONOLACTONE 25MG TABLET PO SCH (09:00)
[2019-11-25] MEDS: HALOPERIDOL 5MG TABLET PO SCH ×2 (09:06→21:01)
[2019-11-25] MEDS: QUETIAPINE FUMARATE 25MG TABLET PO SCH ×2 (09:06→21:01)
[2019-11-25 12:00] VITALS: BP 91/52
[2019-11-25 16:00] VITALS: BP 91/52
[2019-11-25 20:00] VITALS: BP 102/44
[2019-11-26] VITALS: BP 101/44
[2019-11-26 04:00] VITALS: BP 97/42
[2019-11-26 08:00] VITALS: BP 94/40
[2019-11-26] MEDS: LISINOPRIL 2.5MG TABLET PO SCH (09:00)
[2019-11-26] MEDS: SPIRONOLACTONE 25MG TABLET PO SCH (09:00)
[2019-11-26] MEDS: QUETIAPINE FUMARATE 25MG TABLET PO SCH ×2 (09:49→20:44)
[2019-11-26] MEDS: HALOPERIDOL 5MG TABLET PO SCH ×2 (09:49→20:45)
[2019-11-26 12:00] VITALS: BP 94/40
[2019-11-26 16:00] VITALS: BP 122/62
[2019-11-26 20:00] VITALS: BP 90/57
[2019-11-27] VITALS: BP 103/45
[2019-11-27 04:00] VITALS: BP 97/41
[2019-11-27 06:36] LABS: BASOPHILS % 0.4 % (0.0-2.0); HEMATOCRIT. 40.1 % (36.0-48.0); HEMOGLOBIN. 13.8 g/dL (12.0-16.0); LYMPHOCYTES % 35.8 % (20.0-50.0); MEAN CORPUSCULAR HEMOGLOBIN 29.6 pg (28.0-32.0); MEAN CORPUSCULAR VOLUME 85.8 fL (81.0-99.0); NEUTROPHILS % 52.8 % (40.0-76.0); PLATELET 247 x1000/uL (130-400); RED BLOOD CELL COUNT 4.67 mill/uL (4.2-5.4); RED CELL DISTRIBUTION WIDTH 14.2 % (11.6-14.6)
[2019-11-27 07:41] LABS: CHLORIDE 106 mEq/L (98-107)
[2019-11-27 08:00] VITALS: BP 99/58
[2019-11-27] MEDS: SPIRONOLACTONE 25MG TABLET PO SCH (09:00)
[2019-11-27] MEDS: LISINOPRIL 2.5MG TABLET PO SCH (09:00)
[2019-11-27] MEDS: QUETIAPINE FUMARATE 25MG TABLET PO SCH ×2 (09:33→21:01)
[2019-11-27] MEDS: HALOPERIDOL 5MG TABLET PO SCH ×2 (09:34→21:06)
[2019-11-27 20:00] VITALS: BP 111/49
[2019-11-28] VITALS: BP 100/58
[2019-11-28 04:00] VITALS: BP 103/45
[2019-11-28 08:00] VITALS: BP 98/41
[2019-11-28] MEDS: SPIRONOLACTONE 25MG TABLET PO SCH (08:54)
[2019-11-28] MEDS: HALOPERIDOL 5MG TABLET PO SCH ×2 (08:55→20:30)
[2019-11-28] MEDS: QUETIAPINE FUMARATE 25MG TABLET PO SCH (08:55)
[2019-11-28] MEDS: LISINOPRIL 2.5MG TABLET PO SCH (08:56)
[2019-11-28 12:00] VITALS: BP 92/47
[2019-11-28 16:00] VITALS: BP 105/52
[2019-11-28 20:00] VITALS: BP 106/59
[2019-11-29 00:20] VITALS: BP 101/53
[2019-11-29 04:00] VITALS: BP 99/55
[2019-11-29 08:00] VITALS: BP 116/53
[2019-11-29] MEDS: LISINOPRIL 2.5MG TABLET PO SCH (09:01)
[2019-11-29] MEDS: HALOPERIDOL 5MG TABLET PO SCH ×2 (09:01→20:42)
[2019-11-29] MEDS: SPIRONOLACTONE 25MG TABLET PO SCH (09:03)
[2019-11-29 12:00] VITALS: BP 92/48
[2019-11-29 16:00] VITALS: BP 104/45
[2019-11-29 20:00] VITALS: BP 108/58
[2019-11-30] VITALS: BP 130/46
[2019-11-30 04:00] VITALS: BP 95/34
[2019-11-30] MEDS: SPIRONOLACTONE 25MG TABLET PO SCH (09:00)
[2019-11-30] MEDS: LISINOPRIL 2.5MG TABLET PO SCH (09:00)
[2019-11-30] MEDS: HALOPERIDOL 5MG TABLET PO SCH ×2 (10:37→20:27)
[2019-11-30 20:00] VITALS: BP 90/40
[2019-12-01] VITALS: BP 129/68
[2019-12-01 04:00] VITALS: BP 103/52
[2019-12-01] MEDS: HALOPERIDOL 5MG TABLET PO SCH ×2 (10:09→20:39)
[2019-12-01 20:00] VITALS: BP 105/59
[2019-12-02] VITALS: BP 100/53
[2019-12-02 04:00] VITALS: BP 114/57
[2019-12-02 08:00] VITALS: BP 105/37
[2019-12-02] MEDS: LISINOPRIL 2.5MG TABLET PO SCH (09:00)
[2019-12-02] MEDS: HALOPERIDOL 5MG TABLET PO SCH ×2 (09:54→20:55)
[2019-12-02 12:00] VITALS: BP 104/63
[2019-12-02 16:00] VITALS: BP 116/66
[2019-12-02 20:00] VITALS: BP 97/58
[2019-12-03] VITALS: BP 112/67
[2019-12-03 04:00] VITALS: BP 106/48
[2019-12-03 08:00] VITALS: BP 118/51
[2019-12-03] MEDS: HALOPERIDOL 5MG TABLET PO SCH ×2 (09:53→21:12)
[2019-12-03 12:00] VITALS: BP 113/47
[2019-12-03 16:00] VITALS: BP 118/46
[2019-12-03 20:00] VITALS: BP 121/67
[2019-12-04] VITALS (7 sets, daily range): BP systolic 91–139; BP diastolic 41–63
[2019-12-04] MEDS: LISINOPRIL 2.5MG TABLET PO SCH (09:00)
[2019-12-04] MEDS: HALOPERIDOL 5MG TABLET PO SCH ×2 (09:47→20:57)
[2019-12-05 04:00] VITALS: BP 95/55
[2019-12-05] MEDS: HALOPERIDOL 5MG TABLET PO SCH ×2 (08:33→21:58)
[2019-12-05 12:00] VITALS: BP 97/52
[2019-12-05 16:00] VITALS: BP 112/68
[2019-12-05 20:00] VITALS: BP 95/53
[2019-12-06] VITALS: BP 95/51
[2019-12-06 04:00] VITALS: BP 92/43
[2019-12-06 08:00] VITALS: BP 100/65
[2019-12-06] MEDS: LISINOPRIL 2.5MG TABLET PO SCH (08:58)
[2019-12-06] MEDS: HALOPERIDOL 5MG TABLET PO SCH ×2 (09:01→20:37)
[2019-12-06 12:00] VITALS: BP 92/49
[2019-12-06 15:19] LABS: BASOPHILS % 0.3 % (0.0-2.0); EOSINOPHILS % 2.2 % (0.0-5.0); HEMATOCRIT. 36.5 % (36.0-48.0); HEMOGLOBIN. 12.6 g/dL (12.0-16.0); LYMPHOCYTES % 26.3 % (20.0-50.0); MEAN CORPUSCULAR HEMOGLOBIN 29.6 pg (28.0-32.0); MEAN CORPUSCULAR VOLUME 85.6 fL (81.0-99.0); MEAN PLATELET VOLUME 8.7 fl (7.4-10.4); MONOCYTES % 7.4 % (2.0-8.0); NEUTROPHILS % 63.8 % (40.0-76.0); PLATELET 262 x1000/uL (130-400); RED BLOOD CELL COUNT 4.27 mill/uL (4.2-5.4); RED CELL DISTRIBUTION WIDTH 13.2 % (11.6-14.6)
[2019-12-06 15:28] LABS: CHLORIDE 106 mEq/L (98-107)
[2019-12-06 16:00] VITALS: BP 96/47
[2019-12-06 20:28] VITALS: BP 101/56
[2019-12-07] VITALS: BP 104/61
[2019-12-07 04:00] VITALS: BP 99/51
[2019-12-07 08:00] VITALS: BP 90/50
[2019-12-07] MEDS: HALOPERIDOL 5MG TABLET PO SCH ×2 (08:42→22:08)
[2019-12-07 12:00] VITALS: BP 103/58
[2019-12-07 16:00] VITALS: BP 110/70
[2019-12-07 20:00] VITALS: BP 103/49
[2019-12-08 00:29] VITALS: BP 101/51
[2019-12-08 04:00] VITALS: BP 97/55
[2019-12-08 08:00] VITALS: BP 98/50
[2019-12-08] MEDS: HALOPERIDOL 5MG TABLET PO SCH ×2 (09:17→20:22)
[2019-12-08] MEDS: LISINOPRIL 2.5MG TABLET PO SCH (09:41)
[2019-12-08 12:00] VITALS: BP 99/54
[2019-12-08 16:00] VITALS: BP 96/60
[2019-12-08 20:00] VITALS: BP 108/49
[2019-12-09] VITALS: BP 97/58
[2019-12-09 04:00] VITALS: BP 106/56
[2019-12-09 08:00] VITALS: BP 91/47
[2019-12-09] MEDS: HALOPERIDOL 5MG TABLET PO SCH ×2 (08:43→20:35)
[2019-12-09 12:00] VITALS: BP 91/44
[2019-12-09 16:00] VITALS: BP 102/38
[2019-12-09 20:00] VITALS: BP 96/45
[2019-12-10] VITALS: BP 99/43
[2019-12-10 04:00] VITALS: BP 102/44
[2019-12-10 08:00] VITALS: BP 90/39
[2019-12-10] MEDS: LISINOPRIL 2.5MG TABLET PO SCH (09:00)
[2019-12-10] MEDS: HALOPERIDOL 5MG TABLET PO SCH ×2 (09:55→21:04)
[2019-12-10 12:00] VITALS: BP 91/48
[2019-12-10 20:00] VITALS: BP 103/43
[2019-12-11] VITALS: BP 97/44
[2019-12-11 04:00] VITALS: BP 108/52
[2019-12-11 08:00] VITALS: BP 94/34
[2019-12-11] MEDS: LISINOPRIL 2.5MG TABLET PO SCH (09:00)
[2019-12-11] MEDS: HALOPERIDOL 5MG TABLET PO SCH ×2 (09:26→21:00)
[2019-12-11 12:00] VITALS: BP 96/46
[2019-12-11 16:00] VITALS: BP 101/47
[2019-12-11 20:00] VITALS: BP 104/59
[2019-12-12 00:09] VITALS: BP 99/57
[2019-12-12 04:00] VITALS: BP 126/57
[2019-12-12 08:00] VITALS: BP 107/60
[2019-12-12] MEDS: HALOPERIDOL 5MG TABLET PO SCH ×2 (09:22→21:09)
[2019-12-12 12:00] VITALS: BP 95/58
[2019-12-12] MEDS: DIPHENHYDRAMINE 50MG CAPSULE PO PRN (15:55)
[2019-12-12 16:00] VITALS: BP 113/73
[2019-12-12 20:00] VITALS: BP 100/45
[2019-12-13] VITALS: BP 94/57
[2019-12-13 04:00] VITALS: BP 96/52
[2019-12-13 08:00] VITALS: BP 117/89
[2019-12-13] MEDS: HALOPERIDOL 5MG TABLET PO SCH ×2 (09:25→21:35)
[2019-12-13 12:00] VITALS: BP 110/72
[2019-12-13 13:24] LABS: HEMATOCRIT. 38.2 % (36.0-48.0); HEMOGLOBIN. 13.3 g/dL (12.0-16.0); MEAN CORPUSCULAR HEMOGLOBIN 29.3 pg (28.0-32.0); MEAN CORPUSCULAR VOLUME 84.5 fL (81.0-99.0); RED BLOOD CELL COUNT 4.52 mill/uL (4.2-5.4)
[2019-12-13 13:34] LABS: CHLORIDE 107 mEq/L (98-107)
[2019-12-13 13:58] LABS: MEAN PLATELET VOLUME 8.8 fl (7.4-10.4); PLATELET 266 x1000/uL (130-400); PLATELET ESTIMATE NORMAL
[2019-12-13] MEDS: DIPHENHYDRAMINE HCL/ZINC ACET 28 GM CREAM TOP SCH ×2 (14:00→21:36)
[2019-12-13] MEDS: ACYCLOVIR 400 MG TABLET PO SCH ×3 (15:01→21:36)
[2019-12-13 16:00] VITALS: BP 109/56
[2019-12-13 20:00] VITALS: BP 109/53
[2019-12-13] MEDS: HALOPERIDOL 2MG TABLET PO SCH (21:23)
[2019-12-14] VITALS: BP 90/57
[2019-12-14 04:00] VITALS: BP 94/43
[2019-12-14] MEDS: ACYCLOVIR 400 MG TABLET PO SCH ×5 (05:53→21:13)
[2019-12-14 08:00] VITALS: BP 97/45
[2019-12-14] MEDS: HALOPERIDOL 5MG TABLET PO SCH ×2 (09:08→21:12)
[2019-12-14] MEDS: HALOPERIDOL 2MG TABLET PO SCH ×2 (09:08→21:13)
[2019-12-14] MEDS: LISINOPRIL 2.5MG TABLET PO SCH (09:14)
[2019-12-14] MEDS: DIPHENHYDRAMINE HCL/ZINC ACET 28 GM CREAM TOP SCH ×2 (09:16→21:13)
[2019-12-14 12:00] VITALS: BP 103/31
[2019-12-14 16:00] VITALS: BP 93/54
[2019-12-14 20:00] VITALS: BP 105/52
[2019-12-15] VITALS: BP 94/42
[2019-12-15 04:00] VITALS: BP 95/55
[2019-12-15] MEDS: ACYCLOVIR 400 MG TABLET PO SCH ×5 (05:35→21:17)
[2019-12-15 08:00] VITALS: BP 94/51
[2019-12-15] MEDS: HALOPERIDOL 5MG TABLET PO SCH ×2 (08:17→21:17)
[2019-12-15] MEDS: HALOPERIDOL 2MG TABLET PO SCH ×2 (08:17→21:17)
[2019-12-15] MEDS: DIPHENHYDRAMINE HCL/ZINC ACET 28 GM CREAM TOP SCH ×2 (08:18→21:17)
[2019-12-15 12:22] VITALS: BP 96/55
[2019-12-15 16:00] VITALS: BP 109/62
[2019-12-15 20:00] VITALS: BP 106/55
[2019-12-16] VITALS: BP 116/86
[2019-12-16 04:00] VITALS: BP 100/60
[2019-12-16] MEDS: ACYCLOVIR 400 MG TABLET PO SCH ×5 (05:39→21:18)
[2019-12-16 08:00] VITALS: BP 101/53
[2019-12-16] MEDS: DIPHENHYDRAMINE HCL/ZINC ACET 28 GM CREAM TOP SCH ×2 (08:21→21:18)
[2019-12-16] MEDS: HALOPERIDOL 2MG TABLET PO SCH ×2 (08:21→21:17)
[2019-12-16] MEDS: HALOPERIDOL 5MG TABLET PO SCH ×2 (08:21→21:17)
[2019-12-16] MEDS: LISINOPRIL 2.5MG TABLET PO SCH (08:22)
[2019-12-16] MEDS: DIPHENHYDRAMINE 50MG CAPSULE PO PRN (12:30)
[2019-12-16 20:00] VITALS: BP 96/56
[2019-12-17] VITALS: BP 98/60
[2019-12-17 04:00] VITALS: BP 99/51
[2019-12-17] MEDS: ACYCLOVIR 400 MG TABLET PO SCH ×5 (05:28→20:31)
[2019-12-17] MEDS: DIPHENHYDRAMINE 50MG CAPSULE PO PRN (09:21)
[2019-12-17] MEDS: HALOPERIDOL 2MG TABLET PO SCH ×2 (09:21→20:30)
[2019-12-17] MEDS: DIPHENHYDRAMINE HCL/ZINC ACET 28 GM CREAM TOP SCH ×2 (09:22→20:30)
[2019-12-17] MEDS: HALOPERIDOL 5MG TABLET PO SCH ×2 (09:55→20:30)
[2019-12-17 16:00] VITALS: BP 113/78
[2019-12-17 20:00] VITALS: BP 103/53
[2019-12-18] VITALS: BP 99/57
[2019-12-18 04:00] VITALS: BP 105/60
[2019-12-18] MEDS: ACYCLOVIR 400 MG TABLET PO SCH ×5 (06:44→21:09)
[2019-12-18 08:00] VITALS: BP 99/62
[2019-12-18] MEDS: LISINOPRIL 2.5MG TABLET PO SCH (09:00)
[2019-12-18] MEDS: HALOPERIDOL 5MG TABLET PO SCH ×2 (09:32→21:08)
[2019-12-18] MEDS: HALOPERIDOL 2MG TABLET PO SCH ×2 (09:33→21:09)
[2019-12-18] MEDS: DIPHENHYDRAMINE HCL/ZINC ACET 28 GM CREAM TOP SCH ×2 (09:33→21:09)
[2019-12-18 12:00] VITALS: BP 108/68
[2019-12-18 16:00] VITALS: BP 122/76
[2019-12-18 20:00] VITALS: BP 104/48
[2019-12-19] VITALS: BP 100/51
[2019-12-19 04:00] VITALS: BP 97/52
[2019-12-19] MEDS: ACYCLOVIR 400 MG TABLET PO SCH ×5 (05:35→22:52)
[2019-12-19 08:00] VITALS: BP 95/52
[2019-12-19] MEDS: HALOPERIDOL 2MG TABLET PO SCH ×2 (08:26→22:02)
[2019-12-19] MEDS: HALOPERIDOL 5MG TABLET PO SCH ×2 (08:26→22:02)
[2019-12-19] MEDS: DIPHENHYDRAMINE HCL/ZINC ACET 28 GM CREAM TOP SCH ×2 (08:27→22:03)
[2019-12-19 12:00] VITALS: BP 101/49
[2019-12-19 16:00] VITALS: BP 107/56
[2019-12-19 20:00] VITALS: BP 95/59
[2019-12-20] VITALS: BP 103/62
[2019-12-20 04:00] VITALS: BP 101/61
[2019-12-20] MEDS: ACYCLOVIR 400 MG TABLET PO SCH ×5 (05:41→21:02)
[2019-12-20 08:00] VITALS: BP 101/62
[2019-12-20] MEDS: HALOPERIDOL 2MG TABLET PO SCH ×2 (09:55→21:02)
[2019-12-20] MEDS: HALOPERIDOL 5MG TABLET PO SCH ×2 (09:55→21:02)
[2019-12-20] MEDS: LISINOPRIL 2.5MG TABLET PO SCH (10:11)
[2019-12-20] MEDS: DIPHENHYDRAMINE HCL/ZINC ACET 28 GM CREAM TOP SCH ×2 (10:11→21:02)
[2019-12-20 12:00] VITALS: BP 105/55
[2019-12-20 16:00] VITALS: BP 103/61
[2019-12-20 19:59] VITALS: BP 99/61
[2019-12-21 00:10] VITALS: BP 101/57
[2019-12-21 04:00] VITALS: BP 99/56
[2019-12-21] MEDS: ACYCLOVIR 400 MG TABLET PO SCH ×3 (05:33→13:28)
[2019-12-21 08:00] VITALS: BP 96/49
[2019-12-21] MEDS: HALOPERIDOL 5MG TABLET PO SCH ×2 (09:23→21:00)
[2019-12-21] MEDS: HALOPERIDOL 2MG TABLET PO SCH ×2 (09:23→21:01)
[2019-12-21] MEDS: DIPHENHYDRAMINE HCL/ZINC ACET 28 GM CREAM TOP SCH ×2 (09:24→21:02)
[2019-12-21 12:00] VITALS: BP 128/64
[2019-12-21 16:00] VITALS: BP 125/69
[2019-12-21 20:00] VITALS: BP 93/44
[2019-12-22] VITALS: BP 94/49
[2019-12-22 04:00] VITALS: BP 95/42
[2019-12-22 08:00] VITALS: BP 104/62
[2019-12-22] MEDS: HALOPERIDOL 2MG TABLET PO SCH ×2 (08:25→20:48)
[2019-12-22] MEDS: HALOPERIDOL 5MG TABLET PO SCH ×2 (08:25→20:48)
[2019-12-22] MEDS: LISINOPRIL 2.5MG TABLET PO SCH (08:25)
[2019-12-22] MEDS: DIPHENHYDRAMINE HCL/ZINC ACET 28 GM CREAM TOP SCH ×2 (08:27→20:49)
[2019-12-22 12:00] VITALS: BP 112/76
[2019-12-22 20:00] VITALS: BP 99/69
[2019-12-23] VITALS: BP 97/52
[2019-12-23 04:00] VITALS: BP 104/50
[2019-12-23 08:00] VITALS: BP 100/54
[2019-12-23] MEDS: DIPHENHYDRAMINE 50MG CAPSULE PO PRN (09:51)
[2019-12-23] MEDS: HALOPERIDOL 5MG TABLET PO SCH ×2 (09:51→20:51)
[2019-12-23] MEDS: HALOPERIDOL 2MG TABLET PO SCH ×2 (09:51→20:51)
[2019-12-23] MEDS: DIPHENHYDRAMINE HCL/ZINC ACET 28 GM CREAM TOP SCH ×2 (09:59→20:54)
[2019-12-23 12:00] VITALS: BP 98/51
[2019-12-23 16:00] VITALS: BP 111/60
[2019-12-23 17:15] LABS: BASOPHILS % 0.5 % (0.0-2.0); CHLORIDE 108 mEq/L (98-107); EOSINOPHILS % 2.3 % (0.0-5.0); HEMATOCRIT. 37.1 % (36.0-48.0); LYMPHOCYTES % 38.8 % (20.0-50.0); MEAN CORPUSCULAR HEMOGLOBIN 29.8 pg (28.0-32.0); MEAN CORPUSCULAR VOLUME 85.3 fL (81.0-99.0); MEAN PLATELET VOLUME 9.2 fl (7.4-10.4); MONOCYTES % 7.2 % (2.0-8.0); NEUTROPHILS % 51.2 % (40.0-76.0); PLATELET 261 x1000/uL (130-400); RED BLOOD CELL COUNT 4.36 mill/uL (4.2-5.4)
[2019-12-23 20:00] VITALS: BP 105/55
[2019-12-24] VITALS: BP 97/43
[2019-12-24 04:00] VITALS: BP 88/41
[2019-12-24 08:00] VITALS: BP 98/56
[2019-12-24] MEDS: HALOPERIDOL 2MG TABLET PO SCH ×2 (08:03→21:17)
[2019-12-24] MEDS: LISINOPRIL 2.5MG TABLET PO SCH (08:03)
[2019-12-24] MEDS: HALOPERIDOL 5MG TABLET PO SCH ×2 (08:03→21:17)
[2019-12-24] MEDS: DIPHENHYDRAMINE HCL/ZINC ACET 28 GM CREAM TOP SCH ×2 (08:05→21:18)
[2019-12-24 12:00] VITALS: BP 103/56
[2019-12-24 16:00] VITALS: BP 107/72
[2019-12-24 20:00] VITALS: BP 101/57
[2019-12-25] VITALS: BP 100/51
[2019-12-25 04:00] VITALS: BP 101/50
[2019-12-25 08:00] VITALS: BP 97/65
[2019-12-25] MEDS: HALOPERIDOL 2MG TABLET PO SCH ×2 (08:30→21:00)
[2019-12-25] MEDS: HALOPERIDOL 5MG TABLET PO SCH ×2 (08:30→21:00)
[2019-12-25] MEDS: DIPHENHYDRAMINE HCL/ZINC ACET 28 GM CREAM TOP SCH ×2 (08:31→21:01)
[2019-12-25 12:00] VITALS: BP 103/60
[2019-12-25 16:00] VITALS: BP 105/66
[2019-12-25 20:00] VITALS: BP 105/55
[2019-12-26] VITALS: BP 94/51
[2019-12-26 04:00] VITALS: BP 101/52
[2019-12-26 08:00] VITALS: BP 126/86
[2019-12-26] MEDS: LISINOPRIL 2.5MG TABLET PO SCH (08:22)
[2019-12-26] MEDS: HALOPERIDOL 5MG TABLET PO SCH ×2 (08:24→21:11)
[2019-12-26] MEDS: HALOPERIDOL 2MG TABLET PO SCH ×2 (08:24→21:11)
[2019-12-26] MEDS: DIPHENHYDRAMINE HCL/ZINC ACET 28 GM CREAM TOP SCH ×2 (08:25→21:18)
[2019-12-26 11:49] VITALS: BP 106/68
[2019-12-26 16:00] VITALS: BP 103/61
[2019-12-26 20:00] VITALS: BP 108/74
[2019-12-27] VITALS: BP 100/81
[2019-12-27 04:00] VITALS: BP 107/85
[2019-12-27 08:00] VITALS: BP 90/64
[2019-12-27] MEDS: DIPHENHYDRAMINE HCL/ZINC ACET 28 GM CREAM TOP SCH ×2 (08:11→21:43)
[2019-12-27] MEDS: HALOPERIDOL 5MG TABLET PO SCH ×2 (08:11→21:43)
[2019-12-27] MEDS: HALOPERIDOL 2MG TABLET PO SCH ×2 (08:11→21:42)
[2019-12-27 12:00] VITALS: BP 105/58
[2019-12-27 16:00] VITALS: BP 100/57
[2019-12-27 20:00] VITALS: BP 106/67
[2019-12-28] VITALS: BP 106/57
[2019-12-28 04:00] VITALS: BP 108/68
[2019-12-28 08:00] VITALS: BP 98/50
[2019-12-28] MEDS: HALOPERIDOL 2MG TABLET PO SCH ×2 (08:58→21:26)
[2019-12-28] MEDS: HALOPERIDOL 5MG TABLET PO SCH ×2 (08:58→21:26)
[2019-12-28] MEDS: LISINOPRIL 2.5MG TABLET PO SCH (08:59)
[2019-12-28] MEDS: DIPHENHYDRAMINE HCL/ZINC ACET 28 GM CREAM TOP SCH ×2 (09:00→21:27)
[2019-12-28 12:00] VITALS: BP 99/54
[2019-12-28 16:00] VITALS: BP 107/64
[2019-12-28 20:00] VITALS: BP 102/55
[2019-12-29] VITALS: BP 92/51
[2019-12-29 04:00] VITALS: BP 100/60
[2019-12-29] MEDS: HALOPERIDOL 5MG TABLET PO SCH ×2 (08:35→21:45)
[2019-12-29] MEDS: HALOPERIDOL 2MG TABLET PO SCH ×2 (08:35→21:45)
[2019-12-29] MEDS: DIPHENHYDRAMINE HCL/ZINC ACET 28 GM CREAM TOP SCH ×2 (08:36→21:46)
[2019-12-29 09:04] VITALS: BP 91/45
[2019-12-29 12:00] VITALS: BP 101/48
[2019-12-29 16:00] VITALS: BP 93/49
[2019-12-29 20:00] VITALS: BP 108/40
[2019-12-30] VITALS: BP 98/54
[2019-12-30 04:00] VITALS: BP 107/34
[2019-12-30 08:00] VITALS: BP 96/46
[2019-12-30] MEDS: LISINOPRIL 2.5MG TABLET PO SCH (09:00)
[2019-12-30] MEDS: HALOPERIDOL 2MG TABLET PO SCH ×2 (09:34→20:33)
[2019-12-30] MEDS: HALOPERIDOL 5MG TABLET PO SCH ×2 (09:34→20:33)
[2019-12-30] MEDS: DIPHENHYDRAMINE HCL/ZINC ACET 28 GM CREAM TOP SCH ×2 (09:35→20:34)
[2019-12-30 12:00] VITALS: BP 103/54
[2019-12-30 16:00] VITALS: BP 96/79
[2019-12-30 20:00] VITALS: BP 104/46
[2019-12-31] VITALS: BP 89/50
[2019-12-31 04:00] VITALS: BP 100/39
[2019-12-31] MEDS: HALOPERIDOL 5MG TABLET PO SCH ×2 (09:30→21:01)
[2019-12-31] MEDS: HALOPERIDOL 2MG TABLET PO SCH ×2 (09:31→21:01)
[2019-12-31] MEDS: DIPHENHYDRAMINE HCL/ZINC ACET 28 GM CREAM TOP SCH ×2 (09:39→21:02)
[2019-12-31 20:00] VITALS: BP 98/54
[2020-01-01] VITALS: BP 102/50
[2020-01-01 04:00] VITALS: BP 101/51
[2020-01-01 07:56] LABS: BASOPHILS % 0.5 % (0.0-2.0); HEMATOCRIT. 38.1 % (36.0-48.0); HEMOGLOBIN. 13.3 g/dL (12.0-16.0); LYMPHOCYTES % 41.5 % (20.0-50.0); MEAN CORPUSCULAR HEMOGLOBIN 29.7 pg (28.0-32.0); MEAN CORPUSCULAR VOLUME 85.2 fL (81.0-99.0); MEAN PLATELET VOLUME 9.1 fl (7.4-10.4); MONOCYTES % 6.7 % (2.0-8.0); NEUTROPHILS % 49.3 % (40.0-76.0); PLATELET 259 x1000/uL (130-400); RED BLOOD CELL COUNT 4.47 mill/uL (4.2-5.4); RED CELL DISTRIBUTION WIDTH 12.8 % (11.6-14.6)
[2020-01-01 08:00] VITALS: BP 134/99
[2020-01-01 08:01] LABS: CHLORIDE 107 mEq/L (98-107)
[2020-01-01] MEDS: HALOPERIDOL 2MG TABLET PO SCH ×2 (09:45→20:55)
[2020-01-01] MEDS: DIPHENHYDRAMINE HCL/ZINC ACET 28 GM CREAM TOP SCH ×2 (09:45→21:05)
[2020-01-01] MEDS: HALOPERIDOL 5MG TABLET PO SCH ×2 (09:45→20:55)
[2020-01-01 12:00] VITALS: BP 105/51
[2020-01-01 16:00] VITALS: BP 108/58
[2020-01-01 20:30] VITALS: BP 101/61
[2020-01-02] VITALS: BP 91/57
[2020-01-02 04:00] VITALS: BP 95/47
[2020-01-02] MEDS: HALOPERIDOL 5MG TABLET PO SCH ×2 (09:05→21:54)
[2020-01-02] MEDS: HALOPERIDOL 2MG TABLET PO SCH ×2 (09:05→21:54)
[2020-01-02] MEDS: DIPHENHYDRAMINE HCL/ZINC ACET 28 GM CREAM TOP SCH ×2 (09:05→21:54)
[2020-01-02 09:20] VITALS: BP 119/66
[2020-01-02 12:00] VITALS: BP 102/49
[2020-01-02 20:00] VITALS: BP 101/50
[2020-01-03] VITALS: BP 99/51
[2020-01-03 04:00] VITALS: BP 101/50
[2020-01-03 08:00] VITALS: BP 99/38
[2020-01-03] MEDS: HALOPERIDOL 2MG TABLET PO SCH ×2 (09:55→20:29)
[2020-01-03] MEDS: HALOPERIDOL 5MG TABLET PO SCH ×2 (09:55→20:29)
[2020-01-03] MEDS: DIPHENHYDRAMINE HCL/ZINC ACET 28 GM CREAM TOP SCH ×2 (09:56→21:00)
[2020-01-03 12:00] VITALS: BP 119/60
[2020-01-03 20:00] VITALS: BP 104/49
[2020-01-04] VITALS: BP 97/47
[2020-01-04 04:00] VITALS: BP 98/50
[2020-01-04 08:00] VITALS: BP 101/62
[2020-01-04] MEDS: HALOPERIDOL 5MG TABLET PO SCH ×2 (09:40→21:08)
[2020-01-04] MEDS: HALOPERIDOL 2MG TABLET PO SCH ×2 (09:40→21:08)
[2020-01-04] MEDS: DIPHENHYDRAMINE HCL/ZINC ACET 28 GM CREAM TOP SCH ×2 (09:41→21:12)
[2020-01-04 12:00] VITALS: BP 97/52
[2020-01-04 16:00] VITALS: BP 115/45
[2020-01-04 20:00] VITALS: BP 103/70
[2020-01-05] VITALS: BP 102/51
[2020-01-05 04:00] VITALS: BP 101/45
[2020-01-05 08:00] VITALS: BP 93/42
[2020-01-05] MEDS: DIPHENHYDRAMINE HCL/ZINC ACET 28 GM CREAM TOP SCH ×2 (08:44→21:06)
[2020-01-05] MEDS: HALOPERIDOL 5MG TABLET PO SCH ×2 (08:45→21:06)
[2020-01-05] MEDS: HALOPERIDOL 2MG TABLET PO SCH ×2 (08:45→21:06)
[2020-01-05 12:00] VITALS: BP 105/61
[2020-01-05 16:00] VITALS: BP 121/67
[2020-01-05 20:00] VITALS: BP 112/57
[2020-01-06] VITALS: BP 111/49
[2020-01-06 04:00] VITALS: BP 111/49
[2020-01-06 08:00] VITALS: BP 102/36
[2020-01-06] MEDS: HALOPERIDOL 5MG TABLET PO SCH ×2 (08:43→20:08)
[2020-01-06] MEDS: HALOPERIDOL 2MG TABLET PO SCH (08:43)
[2020-01-06] MEDS: DIPHENHYDRAMINE HCL/ZINC ACET 28 GM CREAM TOP SCH ×2 (08:44→20:09)
[2020-01-06 12:00] VITALS: BP 94/44
[2020-01-06 16:00] VITALS: BP 99/44
[2020-01-06 20:00] VITALS: BP 105/53
[2020-01-07] VITALS: BP 99/51
[2020-01-07 04:00] VITALS: BP 101/49
[2020-01-07 08:00] VITALS: BP_SYST 113; BP_SYST 133; BP_DIAS 55; BP_DIAS 74
[2020-01-07] MEDS: HALOPERIDOL 5MG TABLET PO SCH ×2 (09:42→21:02)
[2020-01-07] MEDS: DIPHENHYDRAMINE HCL/ZINC ACET 28 GM CREAM TOP SCH ×2 (09:44→21:03)
[2020-01-07 12:00] VITALS: BP 104/59
[2020-01-07 16:00] VITALS: BP 111/71
[2020-01-07 20:00] VITALS: BP 117/50
[2020-01-08] VITALS: BP 110/56
[2020-01-08 04:00] VITALS: BP 114/51
[2020-01-08 08:00] VITALS: BP 95/58
[2020-01-08] MEDS: HALOPERIDOL 5MG TABLET PO SCH ×2 (08:40→20:45)
[2020-01-08] MEDS: DIPHENHYDRAMINE HCL/ZINC ACET 28 GM CREAM TOP SCH ×2 (08:40→20:46)
[2020-01-08 12:00] VITALS: BP 123/72
[2020-01-08 16:00] VITALS: BP 101/59
[2020-01-08 20:00] VITALS: BP 112/57
[2020-01-08] MEDS: DIPHENHYDRAMINE 50MG CAPSULE PO PRN (20:45)
[2020-01-09] VITALS: BP 101/51
[2020-01-09 04:00] VITALS: BP 96/49
[2020-01-09 08:00] VITALS: BP 100/46
[2020-01-09] MEDS: HALOPERIDOL 5MG TABLET PO SCH ×2 (09:12→21:28)
[2020-01-09] MEDS: DIPHENHYDRAMINE HCL/ZINC ACET 28 GM CREAM TOP SCH ×2 (09:12→21:28)
[2020-01-09 12:00] VITALS: BP 98/45
[2020-01-09 16:00] VITALS: BP 103/51
[2020-01-09 20:00] VITALS: BP 111/55
[2020-01-10] VITALS: BP 108/66
[2020-01-10 04:00] VITALS: BP 94/48
[2020-01-10 06:25] LABS: BASOPHILS % 0.4 % (0.0-2.0); EOSINOPHILS % 2.2 % (0.0-5.0); HEMATOCRIT. 38.7 % (36.0-48.0); HEMOGLOBIN. 13.4 g/dL (12.0-16.0); LYMPHOCYTES % 30.8 % (20.0-50.0); MEAN CORPUSCULAR HEMOGLOBIN 30.1 pg (28.0-32.0); MEAN PLATELET VOLUME 8.8 fl (7.4-10.4); MONOCYTES % 8.2 % (2.0-8.0); NEUTROPHILS % 58.4 % (40.0-76.0); PLATELET 270 x1000/uL (130-400); RED BLOOD CELL COUNT 4.45 mill/uL (4.2-5.4)
[2020-01-10 06:31] LABS: CHLORIDE 107 mEq/L (98-107)
[2020-01-10 08:00] VITALS: BP 107/80
[2020-01-10] MEDS: DIPHENHYDRAMINE HCL/ZINC ACET 28 GM CREAM TOP SCH (09:01)
[2020-01-10] MEDS: HALOPERIDOL 5MG TABLET PO SCH ×2 (09:01→23:00)
[2020-01-10 12:00] VITALS: BP 103/51
[2020-01-10 16:00] VITALS: BP 149/70
[2020-01-10 20:00] VITALS: BP 107/55
[2020-01-11] VITALS: BP 107/59
[2020-01-11 04:00] VITALS: BP 101/59
[2020-01-11 08:00] VITALS: BP 101/49
[2020-01-11 12:00] VITALS: BP 109/67
[2020-01-11 16:00] VITALS: BP 103/52
[2020-01-11 20:00] VITALS: BP 112/64
[2020-01-11] MEDS ORDERED: HALOPERIDOL 5MG TABLET PO ONE (21:00)
[2020-01-11] MEDS: HALOPERIDOL 5MG TABLET PO SCH (21:06)
[2020-01-12] VITALS: BP 108/61
[2020-01-12 04:00] VITALS: BP 111/50
[2020-01-12 08:00] VITALS: BP 117/56
[2020-01-12] MEDS: HALOPERIDOL 5MG TABLET PO SCH ×2 (10:02→20:58)
[2020-01-12 12:00] VITALS: BP 119/61
[2020-01-12 16:00] VITALS: BP 110/58
[2020-01-12 20:00] VITALS: BP 109/50
[2020-01-13] VITALS (7 sets, daily range): BP systolic 100–130; BP diastolic 51–75
[2020-01-13] MEDS: HALOPERIDOL 5MG TABLET PO SCH ×2 (08:38→20:35)
[2020-01-13] MEDS: LISINOPRIL 2.5MG TABLET PO SCH (13:45)
[2020-01-14 04:00] VITALS: BP 107/67
[2020-01-14 08:00] VITALS: BP 101/46
[2020-01-14] MEDS: LISINOPRIL 2.5MG TABLET PO SCH (08:43)
[2020-01-14] MEDS: HALOPERIDOL 5MG TABLET PO SCH ×2 (08:43→21:22)
[2020-01-14 12:00] VITALS: BP 98/45
[2020-01-14 16:00] VITALS: BP 120/57
[2020-01-14 20:00] VITALS: BP 99/40
[2020-01-15] VITALS: BP 90/49
[2020-01-15 04:00] VITALS: BP 102/48
[2020-01-15 08:00] VITALS: BP 99/59
[2020-01-15] MEDS: HALOPERIDOL 5MG TABLET PO SCH ×2 (08:41→21:14)
[2020-01-15] MEDS: LISINOPRIL 2.5MG TABLET PO SCH (08:41)
[2020-01-15 12:03] VITALS: BP 96/60
[2020-01-15 16:00] VITALS: BP 100/52
[2020-01-15 20:00] VITALS: BP 114/49
[2020-01-16] VITALS: BP 110/50
[2020-01-16 08:00] VITALS: BP 90/43
[2020-01-16] MEDS: HALOPERIDOL 5MG TABLET PO SCH ×2 (08:16→21:19)
[2020-01-16] MEDS: LISINOPRIL 2.5MG TABLET PO SCH (09:00)
[2020-01-16 12:34] VITALS: BP 101/56
[2020-01-16 16:00] VITALS: BP 97/52
[2020-01-16 20:00] VITALS: BP 108/52
[2020-01-17] VITALS: BP 121/66
[2020-01-17 04:00] VITALS: BP 117/59
[2020-01-17 08:00] VITALS: BP 97/38
[2020-01-17] MEDS: LISINOPRIL 2.5MG TABLET PO SCH (09:00)
[2020-01-17] MEDS: HALOPERIDOL 5MG TABLET PO SCH ×2 (09:49→22:10)
[2020-01-17 12:00] VITALS: BP 101/50
[2020-01-18] VITALS: BP 109/55
[2020-01-18 04:00] VITALS: BP 103/50
[2020-01-18 08:00] VITALS: BP 92/56
[2020-01-18] MEDS: LISINOPRIL 2.5MG TABLET PO SCH (09:00)
[2020-01-18] MEDS: HALOPERIDOL 5MG TABLET PO SCH ×2 (09:09→20:29)
[2020-01-18 12:00] VITALS: BP 99/50
[2020-01-18 16:00] VITALS: BP 95/45
[2020-01-18 20:00] VITALS: BP 91/60
[2020-01-19] VITALS: BP 88/42
[2020-01-19 04:00] VITALS: BP 95/54
[2020-01-19 08:00] VITALS: BP 94/48
[2020-01-19] MEDS: LISINOPRIL 2.5MG TABLET PO SCH (08:57)
[2020-01-19] MEDS: HALOPERIDOL 5MG TABLET PO SCH ×2 (08:57→20:40)
[2020-01-19 12:00] VITALS: BP 100/36
[2020-01-19 16:00] VITALS: BP 95/39
[2020-01-19 20:00] VITALS: BP 119/67
[2020-01-20] VITALS: BP 90/54
[2020-01-20 04:00] VITALS: BP 117/65
[2020-01-20 08:00] VITALS: BP 96/52
[2020-01-20] MEDS: LISINOPRIL 2.5MG TABLET PO SCH (09:00)
[2020-01-20] MEDS: HALOPERIDOL 5MG TABLET PO SCH ×2 (09:09→21:11)
[2020-01-20 09:17] VITALS: BP 93/44
[2020-01-20 16:00] VITALS: BP 100/54
[2020-01-20 20:00] VITALS: BP 102/21
[2020-01-21] VITALS (7 sets, daily range): BP systolic 88–104; BP diastolic 40–59
[2020-01-21] MEDS: LISINOPRIL 2.5MG TABLET PO SCH (08:11)
[2020-01-21] MEDS: HALOPERIDOL 5MG TABLET PO SCH ×2 (08:35→21:39)
[2020-01-22] VITALS: BP 95/50
[2020-01-22 04:00] VITALS: BP 93/52
[2020-01-22 08:00] VITALS: BP 94/44
[2020-01-22] MEDS: LISINOPRIL 2.5MG TABLET PO SCH (09:00)
[2020-01-22] MEDS: HALOPERIDOL 5MG TABLET PO SCH ×2 (09:07→21:13)
[2020-01-22 12:00] VITALS: BP 88/42
[2020-01-22 16:00] VITALS: BP 85/41
[2020-01-22 20:00] VITALS: BP 104/59
[2020-01-23] VITALS (7 sets, daily range): BP systolic 90–111; BP diastolic 42–62
[2020-01-23] MEDS: HALOPERIDOL 5MG TABLET PO SCH ×2 (09:42→21:38)
[2020-01-23] MEDS: LISINOPRIL 2.5MG TABLET PO SCH (09:44)
[2020-01-24 04:00] VITALS: BP 99/54
[2020-01-24 08:00] VITALS: BP 97/51
[2020-01-24] MEDS: HALOPERIDOL 5MG TABLET PO SCH ×2 (08:24→20:54)
[2020-01-24] MEDS: LISINOPRIL 2.5MG TABLET PO SCH (08:52)
[2020-01-24 12:00] VITALS: BP 100/56
[2020-01-24 16:00] VITALS: BP 110/60
[2020-01-24 20:00] VITALS: BP 98/61
[2020-01-25] VITALS: BP 102/58
[2020-01-25 04:00] VITALS: BP 107/61
[2020-01-25 08:00] VITALS: BP 88/46
[2020-01-25] MEDS: LISINOPRIL 2.5MG TABLET PO SCH (08:05)
[2020-01-25] MEDS: DIPHENHYDRAMINE HCL/ZINC ACET 28 GM CREAM TOP SCH (08:15)
[2020-01-25] MEDS: HALOPERIDOL 5MG TABLET PO SCH ×2 (08:15→21:35)
[2020-01-25 12:00] VITALS: BP 96/40
[2020-01-25 16:00] VITALS: BP 102/48
[2020-01-25 20:00] VITALS: BP 106/44
[2020-01-26] VITALS: BP 103/52
[2020-01-26 04:00] VITALS: BP 100/63
[2020-01-26 08:00] VITALS: BP 106/58
[2020-01-26] MEDS: HALOPERIDOL 5MG TABLET PO SCH ×2 (09:08→21:03)
[2020-01-26] MEDS: DIPHENHYDRAMINE HCL/ZINC ACET 28 GM CREAM TOP SCH (09:08)
[2020-01-26] MEDS: LISINOPRIL 2.5MG TABLET PO SCH (09:08)
[2020-01-26 12:00] VITALS: BP 93/45
[2020-01-26 16:00] VITALS: BP 102/56
[2020-01-26 20:00] VITALS: BP 101/50
[2020-01-27] VITALS: BP 99/51
[2020-01-27 04:00] VITALS: BP 99/56
[2020-01-27 08:00] VITALS: BP 92/47
[2020-01-27] MEDS: LISINOPRIL 2.5MG TABLET PO SCH (09:00)
[2020-01-27] MEDS: HALOPERIDOL 5MG TABLET PO SCH ×2 (09:07→21:51)
[2020-01-27] MEDS: DIPHENHYDRAMINE HCL/ZINC ACET 28 GM CREAM TOP SCH (09:11)
[2020-01-27 10:41] LABS: BASOPHILS % 0.4 % (0.0-2.0); EOSINOPHILS % 2.2 % (0.0-5.0); HEMATOCRIT. 37.9 % (36.0-48.0); HEMOGLOBIN. 13.1 g/dL (12.0-16.0); LYMPHOCYTES % 31.5 % (20.0-50.0); MEAN CORPUSCULAR HEMOGLOBIN 30.1 pg (28.0-32.0); MEAN CORPUSCULAR VOLUME 86.8 fL (81.0-99.0); MEAN PLATELET VOLUME 8.9 fl (7.4-10.4); MONOCYTES % 5.7 % (2.0-8.0); NEUTROPHILS % 60.2 % (40.0-76.0); PLATELET 267 x1000/uL (130-400); RED BLOOD CELL COUNT 4.36 mill/uL (4.2-5.4); RED CELL DISTRIBUTION WIDTH 12.6 % (11.6-14.6)
[2020-01-27 10:53] LABS: CHLORIDE 105 mEq/L (98-107)
[2020-01-27 12:00] VITALS: BP 97/53
[2020-01-27 16:00] VITALS: BP 96/59
[2020-01-27 20:00] VITALS: BP 100/56
[2020-01-28] VITALS: BP 101/55
[2020-01-28 04:00] VITALS: BP 93/53
[2020-01-28 08:00] VITALS: BP 109/68
[2020-01-28] MEDS: LISINOPRIL 2.5MG TABLET PO SCH (08:37)
[2020-01-28] MEDS: HALOPERIDOL 5MG TABLET PO SCH ×2 (08:37→22:39)
[2020-01-28] MEDS: DIPHENHYDRAMINE HCL/ZINC ACET 28 GM CREAM TOP SCH (08:37)
[2020-01-28 12:00] VITALS: BP 96/52
[2020-01-28 16:00] VITALS: BP 98/47
[2020-01-28 20:00] VITALS: BP 93/51
[2020-01-29] VITALS: BP 95/50
[2020-01-29 04:00] VITALS: BP 97/52
[2020-01-29 08:00] VITALS: BP 99/57
[2020-01-29] MEDS: LISINOPRIL 2.5MG TABLET PO SCH (09:00)
[2020-01-29] MEDS: HALOPERIDOL 5MG TABLET PO SCH ×2 (09:38→21:09)
[2020-01-29] MEDS: DIPHENHYDRAMINE HCL/ZINC ACET 28 GM CREAM TOP SCH (09:38)
[2020-01-29 12:00] VITALS: BP 102/64
[2020-01-29 16:00] VITALS: BP_SYST 105; BP_DIAS 63; BP_DIAS 68
[2020-01-29 20:00] VITALS: BP 100/46
[2020-01-30] VITALS: BP 95/53
[2020-01-30 04:00] VITALS: BP 95/48
[2020-01-30 08:00] VITALS: BP 94/59
[2020-01-30] MEDS: LISINOPRIL 2.5MG TABLET PO SCH (08:53)
[2020-01-30] MEDS: HALOPERIDOL 5MG TABLET PO SCH ×2 (08:54→20:39)
[2020-01-30] MEDS: DIPHENHYDRAMINE HCL/ZINC ACET 28 GM CREAM TOP SCH (09:00)
[2020-01-30 12:00] VITALS: BP 100/58
[2020-01-30 16:00] VITALS: BP 106/63
[2020-01-30 20:00] VITALS: BP 133/58
[2020-01-31] VITALS: BP 121/63
[2020-01-31 04:00] VITALS: BP 103/58
[2020-01-31 08:00] VITALS: BP 116/57
[2020-01-31] MEDS: HALOPERIDOL 5MG TABLET PO SCH ×2 (08:08→20:29)
[2020-01-31] MEDS: LISINOPRIL 2.5MG TABLET PO SCH (08:11)
[2020-01-31] MEDS: DIPHENHYDRAMINE HCL/ZINC ACET 28 GM CREAM TOP SCH (08:12)
[2020-01-31 12:00] VITALS: BP 85/46
[2020-01-31 16:00] VITALS: BP 96/47
[2020-01-31] MEDS ORDERED: [UNRECOGNIZED DRUG - CODE] TOP (17:05)
[2020-01-31] MEDS ORDERED: LISI2.5T47 PO (17:05)
[2020-01-31] MEDS ORDERED: HAL5 PO (17:05)
[2020-02-01 08:00] VITALS: BP 93/43
[2020-02-01] MEDS: LISINOPRIL 2.5MG TABLET PO SCH (09:00)
[2020-02-01] MEDS: HALOPERIDOL 5MG TABLET PO SCH ×2 (09:56→20:41)
[2020-02-01 12:00] VITALS: BP 92/43
[2020-02-01 16:00] VITALS: BP 99/48
[2020-02-01 20:00] VITALS: BP 99/48
[2020-02-02] VITALS (7 sets, daily range): BP systolic 97–106; BP diastolic 47–66
[2020-02-02] MEDS: HALOPERIDOL 5MG TABLET PO SCH ×2 (08:53→20:29)
[2020-02-02] MEDS: LISINOPRIL 2.5MG TABLET PO SCH (08:53)
[2020-02-02] MEDS: DIPHENHYDRAMINE HCL/ZINC ACET 28 GM CREAM TOP SCH ×2 (11:32→11:33)
[2020-02-03] VITALS (7 sets, daily range): BP systolic 92–158; BP diastolic 48–80
[2020-02-03] MEDS: HALOPERIDOL 5MG TABLET PO SCH ×2 (09:26→20:47)
[2020-02-03] MEDS: LISINOPRIL 2.5MG TABLET PO SCH (09:33)
[2020-02-03] MEDS: DIPHENHYDRAMINE HCL/ZINC ACET 28 GM CREAM TOP SCH (09:35)
== END 2020-02-03 21:15 | disposition short-term general hospital (02) | DRG 42 ==
LOC: ER 10:14 → EDBEDREQ 14:22 → EDBEDREQTM 14:22 → EDBEDREQ 14:26 → CANBEDREQ 14:32 → 6EST 17:20 → ENRESERV 18:26 → UNDODISIN 11-07 17:21
PROVIDERS: ADMIT Internal Medicine; ATTEND Internal Medicine
DX: G10 Huntington's disease (principal); R00.1 Bradycardia, unspecified; I95.89 Other hypotension; F20.9 Schizophrenia, unspecified; G20 Parkinson's disease; I42.0 Dilated cardiomyopathy; I34.0 Nonrheumatic mitral (valve) insufficiency; R62.7 Adult failure to thrive; I50.22 Chronic systolic (congestive) heart failure; L29.9 Pruritus, unspecified; Z79.899 Other long term (current) drug therapy; Z68.26 Body mass index [BMI] 26.0-26.9, adult; Z03.818 Encounter for observation for suspected exposure to other biological agents ruled out
CPT/HCPCS: 36415; 71045; 80048; 80053; 80307; 80320; 80329; 83735; 84439; 84443; 84703; 85025; 93005; 93306; 93880; 99285; J1630; J1644; Q0163; G0480; U0003-CS